=== PATIENT | male | born 1990 ===

== ENCOUNTER 2021-03-09 07:39 | Emergency (ER) | payer SELFPAY ==
[~2021-03-09] VITALS: Ht 165.1 cm; Wt 62.7 kg
[2021-03-09 07:49] VITALS: TEMP 98.2
[2021-03-09] MEDS ORDERED: ANUSOL HC CREAM30 GM TP (08:27)
[2021-03-09 08:43] VITALS: BP 122/69; PULSE 72
== END 2021-03-09 08:43 | disposition home or self-care (01) ==
LOC: COL.ER 07:39
DX: S80.211A Abrasion, right knee, initial encounter (principal); K64.4 Residual hemorrhoidal skin tags; Z23 Encounter for immunization; V89.2XXA Person injured in unspecified motor-vehicle accident, traffic, initial encounter